=== PATIENT | female | born 1970 ===

== ENCOUNTER 2023-08-21 03:57 | Inpatient (IN) | payer OTHER, MEDICAID, SELFPAY ==
[2023-08-20] VITALS (8 sets, daily range): BP systolic 116–136; BP diastolic 71–84; PULSE 90–91
[2023-08-20 22:38] LABS: % Basophils 0.5 % (0-2); % Eosinophils 1.5 % (0-6); % Immature Granulocytes 0.3 % (0-0.5); % Lymphocytes 34.6 % (20.5-51.1); % Monocytes 8.9 % (1.7-9.3); % Neutrophils 54.2 % (42.2-75.2); Absolute Eosinophils 0.1 10^3/uL (0-0.7); Absolute Lymphocytes 2.3 10^3/uL (1.2-3.4); Absolute Monocytes 0.6 10^3/uL (0.1-0.6); Absolute Neutrophils 3.6 10^3/uL (1.4-6.5); Hematocrit 36.8 % (37.0-47.0); Hemoglobin 12.9 g/dL (12.0-16.0); Mean Corp Hgb Conc. 35.1 g/dL (33.0-37.0); Mean Corpuscular Hgb 31.4 pg (27.0-31.0); Mean Corpuscular Volume 89.5 fL (81.0-99.0); Mean Platelet Volume 9.5 fL (7.4-10.4); Nucleated Red Blood Cells % 0 %; Platelet Count 244 10^3/uL (130-400); Red Blood Cell Count 4.11 10^6/uL (4.20-5.40); Red Cell Dist. Width 12.4 % (11.5-14.5); White Blood Cell Count 6.5 10^3/uL (4.8-10.8)
[2023-08-20 22:50] LABS: D-Dimer 0.48 ug/mlFEU (0.00-0.50)
[2023-08-20 23:01] LABS: Troponin I < 0.012 ng/ml
[2023-08-20 23:03] LABS: ALT (SGPT) 14 U/L (0-35); AST (SGOT) 18 U/L (14-36); Albumin 3.7 g/dl (3.5-5.0); Alkaline Phosphatase 46 U/L (38-126); Blood Urea Nitrogen 11 mg/dl (7-17); Calcium 9.1 mg/dl (8.4-10.2); Carbon Dioxide 28 mmol/L (22-30); Chloride 106 mmol/L (98-107); Glucose 90 mg/dl (70-99); Potassium 3.9 mmol/L (3.5-5.1); Sodium 137 mmol/L (135-145); Total Bilirubin 0.2 mg/dl (0.2-1.3); Total Protein 6.1 g/dl (6.3-8.2); eGFR > 60.00
--- NOTE | 2023-08-20 23:15 | EDRN ---
Report recieved, patient waiting to go to CT, family member at bedside
--- NOTE | 2023-08-20 23:37 | ED.GENMED ---
History of Present Illness
General
Chief Complaint: Fainting/Passed Out
Source: patient
Exam Limitations: none
Time Seen by Provider: 08/20/23 21:10
Nursing documentation reviewed up to this point in time: agreed with
Travel History
Have you had any contact with someone who has COVID-19?: No
Do you have any symptoms of coronavirus? Fever > 100 degrees, chills, cough, shortness of breath, sore throat, loss of taste or smell, muscle aches, or headache?: No
History of Present Illness
History of Present Illness:
Patient without any significant past med history, presents to ED after unwitnessed syncopal episode yesterday morning. Patient states that she had just finished yoga session and she had stood up and was walking when she felt lightheaded. Patient
remembers putting her hand against the wall, when she passed out. Patient woke up with swelling in the back of her head, as she had fallen onto tile floor. Since then, patient has had intermittent headache, dizziness, and 'not feeling well'.
Patient discussed with her primary care physician today who recommended patient come to ED for an evaluation. Patient states that she has had number of similar dizziness in the past, especially when standing up quickly or after hot yoga sessions.
Denies recent illness. Denies recent change in medications or diet. Denies recent travel or surgery. Denies leg pain or swelling.
Review of Systems
Review of Systems
Allergies reviewed?: Yes
All Other Systems: ROS reviewed and negative except as documented in HPI and ROS
Constitutional: Reports no symptoms
EENT: Reports no symptoms
Respiratory: Reports no symptoms
Cardiac: Reports syncope; Denies palpitations
ABD/GI: Reports no symptoms
Musculoskeletal: Reports no symptoms
Skin: Reports no symptoms
Neurological: Reports dizzy; Denies headache or weakness
Phy Exam
Physical Exam
Physical Exam:
Physical Exam
General: no apparent distress, not acutely ill. afebrile
Head: mild tenderness to palpation over posterior scalp with swelling.
Neck: supple. no meningeal signs.
Heart: s1/s2 regular rate and rhythm, no murmur. equal radial pulses.
Lungs: no acute respiratory distress. clear bilaterally
Abdomen: normal bowel sounds. not tender.
Neuro: alert and oriented. no focal neurological deficits
Skin: no rash
Psychiatric: well kept. interactive and cooperative
Extremities: no edema. no calf tenderness.
Course
Orders/Labs/Results
Orders:
Orders
08/20/23 21:29
Electrocardiogram (*1) Urgent
Reason for Study: Syncope
EKG- Treatment ONCE
Orthostatic VS- Treatment ONCE
08/20/23 22:29
CMP [Comprehensive Metabolic Panel] Urgent
Complete Blood Count/With Diff Urgent
D-Dimer Urgent
Troponin I Urgent
08/21/23 00:30
CT Head W/o Iv Contrast Urgent
Reason For Exam: trauma to back of head
08/21/23 03:25
Admit/Transfer Patient As Directed
Co-Sign Provider:
Level of Care: Inpatient admission
Assign to:: IMU- Intermediate Care
Physician / Group: Fabrice
Diagnosis: SDH
Reason for Hospitalization: SDH
Expected length of stay greater than two midnights?: Yes
ELOS- Estimated Length of Stay in days: 2
I certify the patient meets the requirements for IP care: Yes
08/21/23 03:26
Code Status As Directed
Resuscitation Status: Full Code
08/21/23 05:22
0.9% Sodium Chloride 1000 ml [Nss] 1,000 ml IV 85 mls/hr
Acetaminophen [Tylenol] 650 mg PO Q4HPRN PRN
Ondansetron Injectable [Zofran] 4 mg IV Q6HPRN PRN
08/21/23 05:22
Neurosurgery Consult Routine
Consulting Provider: Regine Keen
Was physician already notified: Yes
Reason for Consult: SDH
Activity As Directed
Activity Level: Ambulate
With Assistance
I/O [Intake/ Output] As Directed
Frequency: Per unit guidelines
Neurological Checks As Directed
Frequency: q4h
Orthostatic Vital Signs As Directed
Orthostatic VS Frequency: BID
Pneumatic Compression Sleeves As Directed
Type: Knee high
Vital Signs As Directed
Frequency: Per unit guidelines
Oxygen Therapy [O2 Therapy] [RESP] Routine
Titrate/Wean O2 to maintain O2 sat greater than (%): 94
Ot Eval And Treat Routine
PT Consult [Pt Eval And Treat] Routine
Activity Level: Ambulate
With Assistance
DX Deep Vein Thrombosis Video Routine
08/21/23 05:35
Basic Metabolic Panel IN AM
Magnesium IN AM
08/21/23 05:36
Complete Blood Count/No Diff IN AM
08/21/23 06:30
CT Head W/o Iv Contrast Routine
Comment:
Reason For Exam: Follow-up SDH
08/22/23 Breakfast
Regular
At Your Request: Full Participation
Does patient need a safe tray?: No
Abnormal Lab Results
08/20/23
22:29
RBC 4.11 L 10^6/uL
(4.20-5.40)
Hct 36.8 L %
(37.0-47.0)
MCH 31.4 H pg
(27.0-31.0)
Total Protein 6.1 L g/dl
(6.3-8.2)
08/20/23 22:29
08/20/23 22:29
Vital Signs
Initial and Last Documented VS:
Initial Vital Signs
Pulse Resp BP Pulse Ox
72 18 136/83 100
08/20/23 17:55 08/20/23 17:55 08/20/23 17:55 08/20/23 17:55
Last Documented Vital Signs
Temp Pulse Resp BP Pulse Ox
98.3 F 86 29 98/67 98
08/21/23 11:52 08/21/23 09:45 08/21/23 09:45 08/21/23 09:00 08/21/23 09:58
MDM/Problems Addressed
MDM/Problems Addressed:
CT head report reviewed and discussed with (neurosx) - ok with admission at with repeat CT head later today. Pt otherwise remains afebrile, hemodynamically stable, and neurologically intact during observation.
*EKG
Interpreted by ED Provider?: Yes
EKG Intrepretation Date: 08/20/23
Heart Rate: 59
Rate: bradycardiac
Rhythm: sinus
[place]: normal axis
Interval: normal interval
QRS Pattern: normal QRS
*Critical Care Note
Total Time (30-74mins, 75-104mins- exclusive of procedures): Not Applicable
ED Attending Note
-
Portions of this chart may have been created with voice recognition software.� Occasional wrong word or��sound alike� substitutions may have occurred due to the inherent limitations of voice recognition software.
Discharge Plan
Departure
Patient Disposition: Admit
Date of Disposition: 08/21/23
Time of Disposition: 01:20
Admit to: IMU
Presentation/result/management discussed w/ accepting MD/DO: Hospitalist
Discharge Problem:
Subdural hematoma
Interventions
Interventions:
*Risk Screen - Suicide Last Done: 08/20/23 17:55
*General Assessment Last Done: 08/20/23 17:55
*Neglect/Abuse Screening Last Done: 08/20/23 17:55
ED- Fall Risk Assessment Last Done: 08/20/23 23:15
*ED COVID-19 Vaccine History Last Done: 08/20/23 17:55
*Nursing Disposition Last Done: 08/21/23 05:24
ED- Cardiac Assessment Last Done: 08/20/23 22:31
ED- Neurological Assessment Last Done: 08/20/23 22:31
Discharge Date and Time
Discharge Date/Time: 08/21/23 05:25
[2023-08-21] VITALS (25 sets, daily range): BP systolic 92–126; BP diastolic 57–98; PULSE 64–80; BMI 22.6
--- NOTE | 2023-08-21 01:01 | EDRN ---
Updated on labs and aware waiting for head CT results
--- NOTE | 2023-08-21 01:28 | EDRN ---
Dr. Magallon went over results with patient, call cardona in reach, patient aware she will be admitted, patient ambulated to the restroom wtih steady gait and back in bed resting, no further concerns at this time.
--- NOTE | 2023-08-21 03:28 | HPS.HSE ---
Family Physician
-
Family Physician: NOT KNOW UNKNOWN - PT DOES
Chief Complaint
-
Headache, nausea
History of Present Illness
Patient is a 53y F with no significant PMH who presents to ED complaining of headache, dizziness and nausea s/p fall. Patient states that she suffered a syncopal event and fall yesterday AM. Patient was doing yoga at home on Sunday AM. She
stood afterward and felt somewhat lightheaded. She placed her hands against the wall to steady herself and then lost consciousness. Patient notes that she awoke on the floor lying supine. She was somewhat disoriented upon waking. She was home
alone at the time of the fall. Patient had a large lump on the back of her head and significant headache.
She applied ice to her head and rested for the remainder of that day.
Patient e-mailed her PCP (she lives in [place] and is here visiting family) Sunday evening.
On Sunday, patient felt lightheaded and dizzy. She had nausea with minimal movement of the head, light sensitivity and general malaise.
Her PCP responded to her e-mail on Sunday afternoon and advised her to present to the ED which she did.
CT done here shows small area of subdural hematoma at the anterior falx (2mm).
Patient notes that she feels fair while lying supine / resting.
Medical History
Past Medical History
Past Medical History: Reports Other
Additional Past Medical History:
IVF Treatments
Past Surgical History: Reports Other
Additional Past Surgical History:
Social History
Tobacco: Non-smoker
Alcohol: Occasional
Drug: None
Family History
Family History: Not pertinent
Allergies / Home Medications
Allergies reflects when Allergies were last updated in [employer].
Home Medications with original date entered in [employer]
Allergy/Medication List:
Allergies
Allergy/AdvReac Type Severity Reaction Status Date / Time
Penicillins Allergy Mild Rash Verified 08/20/23 17:54
Home Medications
No Meds [No Current Medications] 08/21/23
Review of Systems
-
History Source: Patient
A 12 point ROS was completed and negative except as noted: Yes
Constitutional: Reports Fatigue; Denies Fever or Chills
EENT: Denies Sore Throat
Respiratory: Denies Cough or Trouble Breathing
Cardiac: Denies Chest Pain or Palpitations
Abdomen/GI: Reports Nausea; Denies Abdominal Pain, Vomiting or Diarrhea
: Denies Dysuria or Frequency
Musculoskeletal: Denies Joint Pain or Edema
Neurological: Reports Dizzy and Headache; Denies Weakness or Numbness
Psych: Denies Depression or Anxiety
Physical Exam
Vital Signs
Vital Signs
Pulse Resp BP Pulse Ox
72 14 112/79 100
08/21/23 01:07 08/21/23 01:07 08/21/23 01:07 08/21/23 01:07
Physical Exam
General: Other (53y F in no acute distress.)
HEENT: Moist mucous membranes and PERRLA
Respiratory: Clear; No Wheezes, Rales or Rhonchi
Cardiac: S1/S2 and Regular Rhythm; No Murmur
GI: Soft, Non Tender, Non Distended and Normal Bowel Sounds
Musculoskeletal: No Clubbing, No Cyanosis and No Edema
Neuro: AO x 3 and Nonfocal/grossly intact
Laboratory Results
-
08/20/23 22:29
08/20/23 22:29
Laboratory Results
Total Bilirubin 0.2 mg/dl (0.2-1.3) 08/20/23 22:29
AST 18 U/L (14-36) 08/20/23 22:29
ALT 14 U/L (0-35) 08/20/23 22:29
Alkaline Phosphatase 46 U/L (38-126) 08/20/23 22:29
Troponin I < 0.012 ng/ml 08/20/23 22:29
Impression/Plan
-
A/P: Patient is a 53y F with no significant PMH who presents to ED complaining of headache, nausea, dizziness and fatigue s/p fall 24 hours ago.
Subdural Hematoma
- Admit for further evaluation and treatment.
- CT shows 2mm area of SDH at the anterior falx.
- Repeat imaging in 6-8 hours for comparison.
- Neurosurgery aware / consulted for further recommendations.
- Follow serial neurologic exams and obtain immediate repeat imaging with any abrupt changes.
Syncope
- Syncopal episode 08/18 likely vasovagal in etiology.
- EKG unremarkable today.
- Monitor on telemetry overnight.
- Follow for any new / recurrent episodes.
Post Concussion Syndrome
- Many of patient's symptoms are c/w concussion.
- Supportive care, pain control, IVFs, etc.
- Avoid strenuous activity, eye strain, etc.
- Follow for clinical improvement.
DVT Prophylaxis: SCDs
Code Status: Full
--- NOTE | 2023-08-21 03:50 | EDRN ---
Dr. Avina in to see patient
[2023-08-21 05:46] LABS: Hematocrit 35.3 % (37.0-47.0); Hemoglobin 12.3 g/dL (12.0-16.0); Mean Corp Hgb Conc. 34.8 g/dL (33.0-37.0); Mean Corpuscular Hgb 31.6 pg (27.0-31.0); Mean Corpuscular Volume 90.7 fL (81.0-99.0); Platelet Count 220 10^3/uL (130-400); Red Blood Cell Count 3.89 10^6/uL (4.20-5.40); Red Cell Dist. Width 12.3 % (11.5-14.5)
[2023-08-21] MEDS: NSS 1000 IV (06:07)
[2023-08-21 06:19] LABS: Blood Urea Nitrogen 10 mg/dl (7-17); Calcium 8.7 mg/dl (8.4-10.2); Carbon Dioxide 21 mmol/L (22-30); Chloride 110 mmol/L (98-107); Estimated Creatinine Clearance 109 ml/min; Glucose 96 mg/dl (70-99); Potassium 3.8 mmol/L (3.5-5.1); Sodium 137 mmol/L (135-145); eGFR > 60.00
--- NOTE | 2023-08-21 06:30 | PTCARENOTE ---
Rec'd pt from ED s/p fall with 2mm SDH on CT head. GCS 15, DOUGLAS 5/5, PERRLA 3. Hematoma noted on back of head, ice pack requested. Tylenol as needed for headache. Afebrile. SB on monitor. PIV with IV fluids as ordered. Pulses palpable, no edema. SCDs
applied. Labs repeated. Room air, clear. Regular diet ordered. Due to void. Repeat CT for 0800. Will monitor.
--- NOTE | 2023-08-21 08:36 | W.PN.HOSP.TC ---
Today's Communication/Plan
-
Continue current management. Echocardiogram pending. Discharge planning in progress
Assessment / Plan
Assessment / Plan
Physical Exam
General: Other (53y F in no acute distress.)
HEENT: Moist mucous membranes and PERRLA
Respiratory: Clear; No Wheezes, Rales or Rhonchi
Cardiac: S1/S2 and Regular Rhythm; No Murmur
GI: Soft, Non Tender, Non Distended and Normal Bowel Sounds
Musculoskeletal: No Clubbing, No Cyanosis and No Edema
Neuro: AO x 3 and Nonfocal/grossly intact
Psych: Anxious
A/P:
Subdural Hematoma
- Admit for further evaluation and treatment.
- CT shows 2mm area of SDH at the anterior falx.
- Repeat imaging in 6-[address] scan reviewed x 2.
- Neurosurgery aware / consulted for further recommendations. Neurosurgery seeing her today and if no further images by neurosurgery then planning to discharge home today. Will have her ambulate and check orthostatics as well.
- Follow serial neurologic exams and obtain immediate repeat imaging with any abrupt changes.
Syncope
Patient was doing some yoga and then afterwards she started looking for her keys in her purse in the kitchen and later on felt lightheadedness followed by syncope event. Patient under a lot of significant emotional stress lately, lack of employment
and a lot of different things going on lately.
- Syncopal episode 08/18 likely vasovagal in etiology.
- EKG unremarkable today.
- Monitor on telemetry overnight.
- Obtain an echocardiogram
- Follow for any new / recurrent episodes.
-If echocardiogram without any structural heart disease, then patient can be discharged home today.
-I curbsided cardiology today and does not appear to be needed for evaluation while inpatient and will have her see them as outpatient for outpatient monitor if needed.
Post Concussion Syndrome
- Many of patient's symptoms are c/w concussion.
- Supportive care, pain control, IVFs, etc.
- Avoid strenuous activity, eye strain, etc.
- Follow for clinical improvement.
DVT Prophylaxis: SCDs
Code Status: Full
Anticipated Discharge: Today
Subjective/Interval History
-
Date of Service: August 21, 2023
Patient feels back to her baseline at this point. No chest pain or palpitations.
Objective Data
-
Labs:
Laboratory Results
08/20/23 08/21/23 08/21/23
22:29 05:35 05:36
WBC 6.5 6.0
Hgb 12.9 12.3
Hct 36.8 L 35.3 L
Plt Count 244 220
Sodium 137 137
Potassium 3.9 3.8
Chloride 106 110 H
Carbon Dioxide 28 21 L
BUN 11 10
Creatinine 0.6 0.5 L
Glucose 90 96
Calcium 9.1 8.7
Total Bilirubin 0.2
AST 18
ALT 14
Alkaline Phosphatase 46
Vital Signs:
Vital Signs
Temp Pulse Resp BP Pulse Ox
98.3 F 58 15 114/98 99
08/21/23 07:15 08/21/23 06:15 08/21/23 06:15 08/21/23 06:00 08/21/23 06:15
I&O
08/20/23 08/21/23 08/22/23
06:59 06:59 06:59
Intake Total 100 / 100
Balance 100 / 100
--- NOTE | 2023-08-21 10:00 | PTCARENOTE ---
Pt received from shift supervisor RN. Pt is Ox3 and appropriate, PERRLA 3mm, equal strength in all extremities. NSR on tele, + pulses, no edema. Breath sounds clear, 98% on RA. + BS, good appetite, no complaints of nausea. BRP x1. Pt applying ice to the
back of her head with relief of pain. IV sites intact. Call cardona within reach. Pt makes needs known.
--- NOTE | 2023-08-21 13:18 | CON.NS ---
Documented by User: Kerri Ha PA-C 08/21/23 13:31
Chief Complaint
-
s/p syncopal episode
History of Present Illness
This is a 53 y/o F who presents to the ED for evaluation of headache, nausea and dizziness s/p fall. She states 2 days ago, she had a syncopal episode after doing yoga and hit her head. She did have a headache afterwards. She did not present to the
ED immediately following the event. Yesterday, she continued with headaches and associated nausea and dizziness. She presented to the ED for evaluation. CTH demonstrated small SDH. Neurosurgery was consulted for evaluation.
She states the headache is slightly improved along with the nausea, dizziness and photophobia. She does not take any AC/AP but will occasionally take NSAIDS.
Review of Systems
-
A 12 point ROS was completed and negative except as noted in the HPI
Medication and Allergies
Home Medications
Home Medications
�Medication �Instructions �Recorded
No Meds [No Current Medications] 08/21/23
Allergies
Allergies
Allergy/AdvReac Type Severity Reaction Status Date / Time
Penicillins Allergy Mild Rash Verified 08/20/23 17:54
Physical Exam
-
Exam:
VSS
AA &O xs 3
CN 2-12 grossly intact
Speech: clear/fluent
motor: 5/5, absent drift bilaterally
cardiac: RRR
Respiratory: non labored breathing
no swelling/edema
skin: no rashes or lesions
Exams: CT Head W/o Iv Contrast
CPT: [id number]
PROCEDURE: CT Head W/o Iv Contrast
CLINICAL INDICATION: Follow-up subdural hematoma. Syncopal episode with a fall hitting the back of the head.
TECHNIQUE: A CT examination of the head was performed without intravenous contrast. Coronal reformatted images were obtained. Automatic exposure control radiation dose reduction technology was utilized.
COMPARISON: Comparison is made with a prior CT examination of the head performed 08/21/2023 at 12:30 AM.
FINDINGS:
There is an acute yndzriff-fthchy-aivvog subgaleal hematoma in the midline posterior to the parietal bones measuring 0.9 x 8.4 cm in AP and transverse dimensions. There is no CT evidence for acute calvarial fracture.
There is a thin band of high attenuation in the anterior inferior aspect of the anterior interhemispheric falx measuring 1.4 x 0.2 cm in AP and transverse dimensions which could be a tiny acute subdural hematoma or calcification in the
interhemispheric falx.
There is a small 0.9 x 1.8 cm arachnoid cyst overlying the anterior convexity of the right frontal lobe causing scalloping of the inner table of the frontal bone overlying the cyst (axial image #11, series #201). The ventricles are midline without
evidence for obstructive hydrocephalus. There is no midline shift or herniation. The pjhw-vydqe-vcvol matter differentiation appears normal. There is no CT evidence for acute, subacute, or chronic transcortical infarct.
The imaged orbits appear normal. There is 5.3 mm mucous retention cyst in the posterior left ethmoid air cells. The imaged mastoid air cells and middle ear cavities are clear.
IMPRESSION:
1. Either minimal acute subdural hematoma or calcification in the anterior interhemispheric falx which appears unchanged from 12:30 AM.
2. 8.4 cm ACUTE SUBGALEAL HEMATOMA in the midline posterior to the parietal bones.
3. Small 1.8 cm arachnoid cyst overlying the anterior convexity of the right frontal lobe.
Problems
-
Problem Status Onset Code
Subdural hematoma S06.5XAA
Assessment / Plan
-
53 y/o F with minimal acute subdural hematoma in the anterior interhemispheric falx
--imaging reviewed by neurosurgeon attending and is stable xs 2 CTs. Incidental arachnoid cyst seen on CTH. This is a benign finding and has likely been present since . No follow up imaging recommended.
--avoid NSAIDs for 5 days
--no further imaging indicated from a neurosurgical standpoint
--neurosurgery to sign off.
--Follow up on an as needed basis
--patient discussed with Dr. Keen.

Documented by User: Regine Keen MD 08/21/23 15:26
Problems
-
Problem Status Onset Code
Subdural hematoma S06.5XAA
Assessment / Plan
-
53 y/o F with minimal acute subdural hematoma in the anterior interhemispheric falx
--imaging reviewed by neurosurgeon attending and is stable xs 2 CTs. Incidental arachnoid cyst seen on CTH. This is a benign finding and has likely been present since . No follow up imaging recommended.
--avoid NSAIDs for 5 days
--no further imaging indicated from a neurosurgical standpoint
--neurosurgery to sign off.
--Follow up on an as needed basis
--patient discussed with Dr. Keen.
ATTENDING ATTESTATION:
Patient seen and examined. Neurologically nonfocal. Has mild symptoms of headache. Additional follow-up imaging reviewed, which demonstrates a small stable 2 mm parafalcine subdural hematoma. Patient on no antiplatelet agents, or oral
anticoagulants. Okay for DVT prophylaxis. Okay to downgrade from ICU. Okay to discharge from neurosurgical standpoint, once cleared by physical therapy. No further follow-up needed. Keppra 500 mg twice daily x 7 days total.
--- NOTE | 2023-08-21 13:57 | CM ---
CM following re: discharge planning.
Discussed in rounds, reviewed pt's chart, met with pt.
pt is a 53 year old female, admitted with primary dx of s/p syncopal episode
Pt reports she lives with SO and 2 children in a [address] in [place], here visiting her sister and parents. 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
PCP: Fidel Cronin
Pharmacy: [facility] while here
D/C plan: home with no needs. Family to transport at discharge.
CM will follow with discharge plan updates as needed.
--- NOTE | 2023-08-21 14:18 | W.DCSUMMARY ---
Discharge Summary
Discharge Data
Date of Admission: 08/21/23
Date of Discharge: 08/21/23
-
Pending Results: No
Hospital Course
Patient 53 years old female who came into the hospital with a syncope event and found to have a mild subdural hematoma. Her syncope was likely related to vasovagal event. She has been under significant emotional stress lately and also doing some
exercises that might have contributed to her presentation. She feels back to her baseline at this point. She has been ambulating without any difficulties. Orthostatics were checked and no abnormalities. Telemetry did not show any abnormality and
twelve-lead EKG was normal. Echocardiogram shows no structural heart abnormalities for any cardiac etiology. We discussed about outpatient heart monitor if anything and she will seek medical advice for that as outpatient and she is to go back to
the [facility] and see a structural steel equipment erector there. She was also seen by neurosurgery and she had repeated CT scan of the head here. Neurosurgery recommend no further imaging and avoid NSAIDs for the next 5 days. No other events were noticed. She is
going to be discharged in stable condition today.
Discharge duration: 33 minutes
Discharge Plan
-
Patient Disposition: Home (Routine Discharge)
Discharge Diagnosis/Procedures: Syncope likely vasovagal. Subdural hematoma.
Condition: Good
Diet: Regular
Activity: As tolerated
Driving Restrictions: As prior to admission
Blood Work: Please PCP to order CBC, BMP within 1 week
Referrals:
Primary care, provider [Other] (See less than 1 week)
Regine Keen MD [Active] - in one to two months
Prescriptions:
No Action
No Current Medications
0
Discharge Orders:
Discharge Patient (As Directed); Ordered 08/21/23
Ordered By: Varun Bryan
Discharge Date and Time
Discharge Date/Time: 08/21/23 17:45
Print Language: TUVALU[place]
--- NOTE | 2023-08-21 15:47 | PTCARENOTE ---
recd pt, ambulating with PT, in good spirits, hopeful for DC today. Presently in bed, VS stable, verbalizing well. Expresses no concern about readyness for dc. no pain.
--- NOTE | 2023-08-21 16:06 | PTOTSP ---
Pt presents to OT with grossly intact cognition, vision and ocular mobility; UB AROM, strength and coordination WFL. Currently at mod I/I level with basic UB/LB self care, transfers and functional mobility without AD. Reports 05/12 headache. No
further skilled OT indicated at this time.
--- NOTE | 2023-08-21 17:37 | PTCARENOTE ---
discharge via [facility] to family member/auto. questions answered. discs included, CT echo and printed labs and ecg. in good spirits.
== END 2023-08-21 17:45 | disposition home or self-care (01) | DRG 84 ==
LOC: ICU 03:57
PROVIDERS: Emergency Medicine; ADMITTING PHYSICIAN Hospitalist; ATTENDING PHYSICIAN Hospitalist; EMERGENCY PHYSICIAN Emergency Medicine; OTHER PHYSICIAN Neurological Surgery
DX: S06.5XAA Traumatic subdural hemorrhage with loss of consciousness status unknown, initial encounter (principal); F07.81 Postconcussional syndrome; W19.XXXA Unspecified fall, initial encounter
CPT/HCPCS: 70450; 80048; 80053; 83735; 84484; 85025; 85027; 85379; 93005; 93306; 97161; 97166; 99285